=== PATIENT | female | born 1990 | race Caucasian/White ===

== ENCOUNTER 2016-10-22 21:37 | Emergency (ER) | payer OTHER ==
[2016-10-22 21:41] VITALS: BP 108/53
[2016-10-22] MEDS ORDERED: oxyCODONE/Acetamin 5/325 MG* TAB PO ONE (22:02)
--- NOTE | 2016-10-22 22:29 | ED ---
Upper Extremity Pain - HPI Summary HPI Summary: Patient arrives to ED and states she tripped over something and landed on a flexed wrist and now having 10/10 pain on radial aspect of L wrist. Denies numbness or tingling in the L fingers. Patient denies other injuries. Patient denies other injuries, LOC or hitting head. Patient denies elbow pain. Requesting pain medication. Allergy to tramadol but is able to take other similar medications per patient. Pain and swelling occurred immediately following incident. - History of Current Complaint Chief Complaint: EDExtremityUpper Stated Complaint: LT WRIST PAIN Time Seen by Provider: 10/22/16 21:46 Hx Obtained From: Patient Hx Last Menstrual Period: <4weeks. Not sexually active Mechanism Of Injury: Direct Blow, Twisted Onset/Duration: Started Hours Ago Timing: Constant Severity Initially: Severe Severity Currently: Severe Pain Location: Wrist - left Character: Aching, Throbbing Aggravating Factor(s): Movement, Lifting, Flexion, Internal/External Rotation, Abduction, Adduction Alleviating Factor(s): Nothing Associated Signs & Symptoms: Positive: Swelling - over radial head Related History: Dominant Hand Right - Risk Factors Non-Orthopedic Risk Factor: Negative DVT Risk Factors: Negative Septic Arthritis Risk Factor: Negative - Allergies/Home Medications Allergies/Adverse Reactions: Allergies Allergy/AdvReac Type Severity Reaction Status Date / Time Tramadol AdvReac UPSET GI Verified 10/22/16 21:42 PMH/Surg Hx/FS Hx/Imm Hx Previously Healthy: Yes Endocrine/Hematology History: Reports: Hx Diabetes - TYPE 1-INSULIN PUMP Denies: Hx Thyroid Disease Cardiovascular History: Denies: Hx Hypercholesterolemia, Hx Hypertension, Hx Pacemaker/ICD, Hx Peripheral Vascular Disease Respiratory History: Denies: Hx Asthma, Hx Chronic Obstructive Pulmonary Disease (COPD) GI History: Denies: Hx Gastroesophageal Reflux Disease, Other GI Disorders History: Reports: Other Problems/Disorders - HX OF NONE NOW Musculoskeletal History: Reports: Hx Tendonitis - RIGHT WRIST Denies: Hx Arthritis, Hx Osteoporosis Sensory History: Reports: Hx Contacts or Glasses - GLASSES Denies: Hx Cataracts, Hx Glaucoma, Hx Hearing Aid Opthamlomology History: Reports: Hx Contacts or Glasses - GLASSES Denies: Hx Cataracts, Hx Glaucoma Neurological History: Denies: Hx Headaches, Hx Seizures, Hx Transient Ischemic Attacks (TIA), Other Neuro Impairments/Disorders Psychiatric History: Reports: Hx Panic Disorder - A LITTLE Denies: Hx Anxiety, Hx Depression - Surgical History Surgery Procedure, Year, and Place: 2010 RIGHT WRIST TRIANGULAR FIBROCARTILAGE TEAR REPAIR, [facility]. 2013 RT WRIST SURGERY Hx Anesthesia Reactions: No Infectious Disease History: Yes Infectious Disease History: Denies: Traveled Outside the [place] in Last 30 Days - Family History Known Family History: Positive: None - Social History Occupation: Unemployed Lives: With Family Alcohol Use: None Hx Substance Use: No Substance Use Type: Reports: None Hx Tobacco Use: Yes Smoking Status (MU): Heavy Every Day Tobacco Smoker Do You Chew or Dip Tobacco: Yes Amount Used/How Often: 1 PPD X 10 YEARS Have You Chewed or Dipped Tobacco in the LAST YEAR: Yes Have You Smoked in the Last Year: Yes Review of Systems Constitutional: Negative Eyes: Negative Cardiovascular: Negative Respiratory: Negative Positive: see HPI Positive: Arthralgia - pain over l wrist over ulnar and radial side, Myalgia Skin: Negative Positive: Other - swelling of L wrist Neurological: Negative Psychological: Normal All Other Systems Reviewed And Are Negative: Yes Physical Exam Triage Information Reviewed: Yes Vital Signs On Initial Exam: Initial Vitals Temp Pulse Resp BP Pulse Ox 97.8 F 115 16 108/53 100 10/22/16 21:38 10/22/16 21:38 10/22/16 21:38 10/22/16 21:38 10/22/16 21:38 Vital Signs Reviewed: Yes Appearance: Positive: Well-Appearing, No Pain Distress, Well-Nourished Skin: Positive: Warm, Skin Color Reflects Adequate Perfusion, Other - swelling over L radial head Eyes: Positive: Normal, EOMI, RUY Neck: Positive: Supple, Nontender Respiratory/Lung Sounds: Positive: Clear to Auscultation, Breath Sounds Present Cardiovascular: Positive: Normal Musculoskeletal: Positive: Other - Thorough physical exam was performed, focusing on special wrist tests. Limited ROM. Pain with palpation over ulnar aspect of wrist at ulnar head. Pain with palpation over radial aspect over radial head. Swelling over radial aspect of wrist. No ecchymosis identified. No pain, swelling or tenderness over anatomical snuffbox. No crepitus noted. No pain on palpation over medial or lateral elbow or forearm tenderness. Due to patient pain around injury, physical exam was limited. Pulses intact bilaterally. No temperature change, color change or pallor noted bilaterally. Sensory intact of radial, medial and ulnar nerve. Capillary refill < 2 sec. Neurological: Positive: Sensory/Motor Intact, Alert, Oriented to Person Place, Time, Speech Normal, Other - patient is very tearful on examination Psychiatric: Positive: Anxious AVPU Assessment: Alert Diagnostics - Vital Signs Vital Signs Temp Pulse Resp BP Pulse Ox 10/22/16 21:38 97.8 F 115 16 108/53 100 - Laboratory Lab Statement: Any lab studies that have been ordered have been reviewed, and results considered in the medical decision making process. Re-Evaluation - Re-Evaluation First Eval Change: Improved - patient improved after dose of oxycodone Course/Dx - Course Course Of Treatment: Based on Critz Wrist Rules, patient sent to imaging. Xray shows avulsion fracture of right distal radius. Soft tissue swelling noted over the dorsal aspect of the wrist. Volar wrist splint applied to allow for immobilization for this period of time. Patient given orthopedic follow up in 5 -[address] Rodriguez. She is a previous patient of Dr. Rodriguez. Encouraged Ibuprofen 600mg three times daily with meals for pain. Patient requesting pain medication. Provider willing to prescribe 2 days of norco with side effects explained. Return precautions given. Educated patient regarding wrist injuries , healing time and the possibility of further evaluation and imaging as orthopedist sees fit. - Diagnoses Differential Diagnosis/HQI/PQRI: Positive: Fracture (Closed), Strain, Sprain Provider Diagnoses: Avulsion of right wrist Discharge - Discharge Plan Condition: Stable Disposition: HOME Prescriptions: HYDROcodone/ACETAMIN 5-325 MG* [[place] 5-325 TAB*] 1 tab PO Q4H PRN #12 tab MDD 6 PRN Reason: Pain Referrals: Sancho Jewell JR, PA [Primary Care Provider] - Rosi Rodriguez MD [Medical Doctor] - Additional Instructions: Splinted for temporary immobilization Ibuprofen 600mg three times daily with meals for pain. If your pain is not well controlled with ibuprofen, you may take Hydrocodone. Follow up with orthopedic physician, Dr. Rodriguez in 5-7 days. If numbness, tingling or decreased sensation develop, you notice color changes in your fingers or pain is worsening, come back to ED immediately for re- evaluation. Protect the area. For your comfort level, do not bear weight, pull or push until you can injury is somewhat healed. Rest the involved area. Ice. Not directly on the skin. Cover with a towel. Apply ice no more than 30 minutes at a time Elevate: Try to elevate the injured area above the heart whenever possible.
--- NOTE | 2016-10-22 22:44 | RAD ---
INDICATION: Wrist pain after a fall COMPARISON: None. TECHNIQUE: 3 views left wrist. REPORT: On the lateral aspect of the distal left radius is a thin bony fragment. There is also density at the adjacent lateral cortex of the radius. The remaining visualized bones are properly aligned and well corticated. The joint spaces are normal. IMPRESSION: Imaging findings are consistent with avulsion fracture involving the distal lateral aspect of the left radius, potentially at the insertion of the brachioradialis muscle. If the patient's symptoms persist, follow-up imaging is recommended.
== END 2016-10-22 23:53 | disposition home or self-care (01) ==
LOC: ED 21:37
DX: S52.502A Unspecified fracture of the lower end of left radius, initial encounter for closed fracture (principal); M25.532 Pain in left wrist; X58.XXXA Exposure to other specified factors, initial encounter; Y93.9 Activity, unspecified; Y92.9 Unspecified place or not applicable
CPT/HCPCS: 99282; A9270-GY

== ENCOUNTER 2017-09-04 11:18 | Emergency (ER) | payer OTHER ==
[2017-09-04 13:21] VITALS: BP 107/64
--- NOTE | 2017-09-04 14:54 | ED ---
Memo Naik Angela, scribed for Gurmeet Valdez MD on 09/04/17 at 1151 . Substance Abuse/Use - HPI Summary HPI Summary: This pt is a 26 y/o, accompanied by her mother, presenting to [facility] via EMS for a heroin overdose approximately around 11:00 today. Pt reports she snorted heroin about 1 hour [employer]. When asked if she overdosed on purpose, she states "I didn't do it intentionally" and "it was a bad batch." Mother notes she was dropping the pt off at [facility] and pt stated she "needed to do something." Pt reports she asked to be taken to [facility] prior to overdose. Mother noticed what she wanted to do and tried to take away the heroin from her but didn't succeed. EMS reports pt was found unresponsive and administered 0.5 mg of Narcan. FSBG 83. PMHx includes type 1 diabetes. - History Of Current Complaint Chief Complaint: EDOverdose Stated Complaint: OVERDOSE Time Seen by Provider: 09/04/17 11:44 Hx Obtained From: Patient Hx Last Menstrual Period: <4weeks. Not sexually active Onset/Duration of Drug/ETOH Abuse: Hours - 1 hour [employer] Ingestion History: Type/Name Of Drug - Heroin, Approximate Time Of Ingestion - approx 11:00 AM Overdose Characteristics: Inhalation Character: Anxious Aggravating Factor(s): Nothing Alleviating Factor(s): Other - Narcan 0.5 mg Associated Signs And Symptoms: Negative - Allergies/Home Medications Allergies/Adverse Reactions: Allergies Allergy/AdvReac Type Severity Reaction Status Date / Time Tramadol AdvReac UPSET GI Verified 10/22/16 21:42 PMH/Surg Hx/FS Hx/Imm Hx Endocrine/Hematology History: Reports: Hx Diabetes - TYPE 1-INSULIN PUMP Denies: Hx Thyroid Disease Cardiovascular History: Denies: Hx Hypercholesterolemia, Hx Hypertension, Hx Pacemaker/ICD, Hx Peripheral Vascular Disease Respiratory History: Denies: Hx Asthma, Hx Chronic Obstructive Pulmonary Disease (COPD) GI History: Denies: Hx Gastroesophageal Reflux Disease, Other GI Disorders History: Reports: Other Problems/Disorders - HX OF NONE NOW Musculoskeletal History: Reports: Hx Tendonitis - RIGHT WRIST Denies: Hx Arthritis, Hx Osteoporosis Sensory History: Reports: Hx Contacts or Glasses - GLASSES Denies: Hx Cataracts, Hx Glaucoma, Hx Hearing Aid Opthamlomology History: Reports: Hx Contacts or Glasses - GLASSES Denies: Hx Cataracts, Hx Glaucoma Neurological History: Denies: Hx Headaches, Hx Seizures, Hx Transient Ischemic Attacks (TIA), Other Neuro Impairments/Disorders Psychiatric History: Reports: Hx Panic Disorder - A LITTLE Denies: Hx Anxiety, Hx Depression - Surgical History Surgery Procedure, Year, and Place: 2010 RIGHT WRIST TRIANGULAR FIBROCARTILAGE TEAR REPAIR, [facility]. 2012 RT WRIST SURGERY Hx Anesthesia Reactions: No - Immunization History Immunizations Up to Date: Yes Infectious Disease History: No Infectious Disease History: Denies: Traveled Outside the [place] in Last 30 Days - Family History Known Family History: Positive: Diabetes, Other - [place] - Social History Alcohol Use: None Hx Substance Use: No Substance Use Type: Reports: Marijuana Substance Use Comment - Amount & Last Used: one bowl daily Hx Tobacco Use: Yes Smoking Status (MU): Heavy Every Day Tobacco Smoker Amount Used/How Often: 1 PPD X 10 YEARS Have You Smoked in the Last Year: Yes Review of Systems Negative: Fever, Chills Cardiovascular: Other Neurological: Other - unresponsive, now resolved after EMS treatment All Other Systems Reviewed And Are Negative: Yes Physical Exam - Summary Physical Exam Summary: Appearance: The patient is well-nourished and is a little agitated. Skin: The skin is warm and dry and skin color reflects adequate perfusion. HEENT: The head is normocephalic and atraumatic. The pupils are equal and reactive. The conjunctivae are clear and without drainage. Nares are patent and without drainage. Mouth reveals moist mucous membranes and the throat is without erythema and exudate. The external ears are intact. The ear canals are patent and without drainage. The tympanic membranes are intact. Neck: the neck is supple with full range of motion and non-tender. There are no carotid bruits. There is no neck vein distension. Respiratory: Chest is non-tender. Lungs are clear to auscultation and breath sounds are symmetrical and equal. Cardiovascular: Pt is tachycardic. There is no murmur or rub auscultated. There is no peripheral edema and pulses are symmetrical and equal. Abdomen: The abdomen is soft and non-tender. There are normal bowel sounds heard in all four quadrants and there is no organomegaly palpated. Musculoskeletal: There is no back tenderness noted. Extremities are non-tender with full range of motion. There is good capillary refill. There is no peripheral edema or calf tenderness elicited. Neurological: Patient is alert and oriented to person, place and time. The patient has symmetrical motor strength in all four extremities. Cranial nerves are grossly intact. Deep tendon reflexes are symmetrical and equal in all four extremities. Psychiatric: The patient has an appropriate affect and does not exhibit any anxiety or depression. Triage Information Reviewed: Yes Vital Signs On Initial Exam: Initial Vitals Temp Pulse Resp BP Pulse Ox 98.1 F 113 19 127/91 96 09/04/17 11:30 09/04/17 11:30 09/04/17 11:30 09/04/17 11:30 09/04/17 11:30 Vital Signs Reviewed: Yes - [place] Coma Scale Coma Scale Total: 15 Diagnostics - Vital Signs Vital Signs Temp Pulse Resp BP Pulse Ox 09/04/17 11:30 98.1 F 113 19 127/91 96 - Laboratory Lab Results: Lab Results 09/04/17 Range/Units 12:19 POC Glucose (mg/dL) 78 (70-100) mg/dL Lab Statement: Any lab studies that have been ordered have been reviewed, and results considered in the medical decision making process. 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 She was scheduled to go to [facility] today and her family took her. When she got there she says she found a bag with a litlle herion in her purse and decided to snort it. She became unresponsive and Narcan was administered. She was agitated here which she and her family say is mormal for her. She did drop her SPO2 into the high 80's if not stimulated and was therefore watched on O2 for a couple hours. Her FSG was fine. Hopefully, [facility] will agree to accept her again. - Diagnoses Provider Diagnoses: Opiate use, Accidental overdose of heroin Discharge - Discharge Plan Condition: Stable Disposition: HOME Patient Education Materials: Narcotic Abuse (ED) Referrals: Sancho Jewell JR, PA [Primary Care Provider] - Additional Instructions: Please follow up with your primary care provider. RETURN TO THE ED FOR ANY WORSENING SYMPTOMS. The documentation as recorded by the [facility] grant Angela accurately reflects the service I personally performed and the decisions made by me, Gurmeet Valdez MD.
== END 2017-09-04 14:19 | disposition home or self-care (01) ==
LOC: ED 11:18
DX: T40.1X1A Poisoning by heroin, accidental (unintentional), initial encounter (principal); F11.90 Opioid use, unspecified, uncomplicated; Y92.9 Unspecified place or not applicable; E10.9 Type 1 diabetes mellitus without complications; F17.210 Nicotine dependence, cigarettes, uncomplicated
CPT/HCPCS: 93005; 99283

== ENCOUNTER 2020-04-24 11:46 | Inpatient (IN) ==
[2020-04-24] MEDS ORDERED: Dextrose 50% Syringe 50 ml 25 GM/50 ML SYRINGE IV PUSH PRN (14:56)
[2020-04-24 15:05] LABS: ABS Basophils 0.1 10^3/ul (0-0.2); ABS Lymphocytes 2.4 10^3/ul (1.0-4.8); ABS Monocytes 1.1 10^3/ul (0-0.8); ABS Neutrophils 9.2 10^3/ul (1.5-7.7); Eosinophil % 0.1 %; Hematocrit 30 % (35-47); Lymphocyte % 18.5 %; Mean Corpuscular HGB Conc 33 g/dL (31-36); Mean Corpuscular Hemoglobin 29 pg (27-31); Mean Corpuscular Volume 87 fL (80-97); Mean Platelet Volume 8.5 fL (7.4-10.4); Platelet Count 259 10^3/uL (150-450); Red Blood Count 3.48 10^6 /uL (3.70-4.87); Red Cell Distribution Width 16 % (10-15); White Blood Count 12.7 10^3/uL (3.5-10.8)
[2020-04-24] MEDS ORDERED: NS 0.9% 250 ml 250 ML ONE (15:11)
[2020-04-24 15:13] LABS: Albumin 3.1 g/dL (3.2-5.2); Albumin/Globulin Ratio 0.9 (1-3); BUN/Creatinine Ratio 29.1 (8-20); Calcium 8.5 mg/dL (8.6-10.3); EGFR African American 158.1 (>60); EGFR Non-African American 130.7 (>60); Globulin 3.5 g/dL (2-4); Magnesium 1.7 mg/dL (1.9-2.7); Potassium 4.6 mmol/L (3.5-5.0); Total Bilirubin 0.5 mg/dL (0.2-1.0); Total Protein 6.6 g/dL (6.4-8.9)
[2020-04-24] MEDS ORDERED: NS 0.9% 1000 ml BAG 1,000 ML IV ONE (15:20)
[2020-04-24] MEDS ORDERED: Dexmedetomidine 1,000 MCG in NS 0.9% 250 ml 240 ML IV SCH (16:00)
[2020-04-24] MEDS ORDERED: Vancomycin 1,000 MG in NS 0.9% 250 ml 250 ML IV ONE (16:49)
[2020-04-24] MEDS ORDERED: Piperacillin/Tazobac ADVAN 3.375 GM in NS 0.9% 100 ml BAG 100 ML IVPB ONE (16:52)
[2020-04-24] MEDS ORDERED: Vancomycin per Pharmacy 1 EA NOTE FOLLOW UP PRN (16:55)
[2020-04-24] MEDS ORDERED: Zosyn per Pharmacy NOTE FOLLOW UP SCH (17:00)
[2020-04-24] MEDS ORDERED: Magnesium Sulfate 2 gm BAG 2 GM/50 ML BAG IVPB ONE (17:08)
[2020-04-24 17:39] LABS: Activated Partial Thrombo Time 27.7 seconds (26.0-38.0); C Reactive Protein 117.09 mg/L (<8.01); INR 1.16 (0.82-1.09)
[2020-04-24 17:50] LABS: Troponin I 0.01 ng/mL (<0.03)
[2020-04-24 17:52] LABS: CKMB ng/mL 4.3 ng/mL (0.6-6.3)
[2020-04-24] MEDS: Lactated Ringers 1000 ml BAG 1,000 ML IV SCH (19:09)
[2020-04-24] MEDS: Heparin 5000 UNITS/ML 1 mL VIAL SUBCUT SCH (20:14)
[2020-04-24] MEDS: ZOSYN 3.375 GM Q8H per EXTENDED INFUSION IV SCH (21:11)
[2020-04-25] MEDS: Vancomycin 750 MG in NS 0.9% 250 ml 250 ML IVPB SCH ×5 (00:32→23:34)
[2020-04-25] MEDS: Lactated Ringers 1000 ml BAG 1,000 ML IV SCH ×2 (02:37→21:22)
[2020-04-25 04:50] LABS: Albumin 2.8 g/dL (3.2-5.2); Albumin/Globulin Ratio 0.9 (1-3); BUN/Creatinine Ratio 21.8 (8-20); Calcium 8.2 mg/dL (8.6-10.3); EGFR African American 158.1 (>60); EGFR Non-African American 130.7 (>60); Magnesium 1.8 mg/dL (1.9-2.7); Phosphorus 2.8 mg/dL (2.5-5.0); Total Bilirubin 0.4 mg/dL (0.2-1.0); Total Protein 5.8 g/dL (6.4-8.9)
[2020-04-25 05:12] LABS: ABS Eosinophils 0.1 10^3/ul (0-0.6); ABS Lymphocytes 2.4 10^3/ul (1.0-4.8); ABS Monocytes 0.8 10^3/ul (0-0.8); ABS Neutrophils 5.3 10^3/ul (1.5-7.7); Hematocrit 28 % (35-47); Hemoglobin 9.2 g/dL (12.0-16.0); Lymphocyte % 27.4 %; Mean Corpuscular HGB Conc 33 g/dL (31-36); Mean Corpuscular Hemoglobin 29 pg (27-31); Mean Corpuscular Volume 86 fL (80-97); Mean Platelet Volume 8.3 fL (7.4-10.4); Platelet Count 265 10^3/uL (150-450); Red Blood Count 3.21 10^6 /uL (3.70-4.87); Red Cell Distribution Width 16 % (10-15); White Blood Count 8.6 10^3/uL (3.5-10.8)
[2020-04-25] MEDS: ZOSYN 3.375 GM Q8H per EXTENDED INFUSION IV SCH ×3 (05:51→21:22)
[2020-04-25] MEDS: Heparin 5000 UNITS/ML 1 mL VIAL SUBCUT SCH ×2 (08:09→21:28)
[2020-04-25] MEDS ORDERED: Magnesium Sulfate 2 gm BAG 2 GM/50 ML BAG IVPB ONE (11:43)
[2020-04-25] MEDS: Insulin GLARGINE 100 un/ml 10 ml VIAL SUBCUT SCH (12:32)
[2020-04-25] MEDS: Buprenorp/Nalox 4-1 MG FILM SL FILM SCH ×2 (14:24→21:23)
[2020-04-25] MEDS ORDERED: Vancomycin Trough Check NOTE FOLLOW UP ONE (17:30)
[2020-04-26] MEDS: ZOSYN 3.375 GM Q8H per EXTENDED INFUSION IV SCH ×3 (06:00→22:12)
[2020-04-26] MEDS: Vancomycin 750 MG in NS 0.9% 250 ml 250 ML IVPB SCH (06:00)
[2020-04-26 06:13] LABS: ABS Eosinophils 0.1 10^3/ul (0-0.6); ABS Lymphocytes 2.1 10^3/ul (1.0-4.8); ABS Monocytes 0.6 10^3/ul (0-0.8); ABS Neutrophils 4.5 10^3/ul (1.5-7.7); Hematocrit 28 % (35-47); Hemoglobin 9.4 g/dL (12.0-16.0); Lymphocyte % 28.1 %; Mean Corpuscular HGB Conc 34 g/dL (31-36); Mean Corpuscular Hemoglobin 29 pg (27-31); Mean Corpuscular Volume 86 fL (80-97); Mean Platelet Volume 7.7 fL (7.4-10.4); Platelet Count 310 10^3/uL (150-450); Red Cell Distribution Width 15 % (10-15); White Blood Count 7.3 10^3/uL (3.5-10.8)
[2020-04-26 06:59] LABS: Albumin 2.5 g/dL (3.2-5.2); Albumin/Globulin Ratio 0.8 (1-3); BUN/Creatinine Ratio 23.8 (8-20); Calcium 8.2 mg/dL (8.6-10.3); EGFR African American 215.8 (>60); EGFR Non-African American 178.4 (>60); Globulin 3.1 g/dL (2-4); Magnesium 1.6 mg/dL (1.9-2.7); Phosphorus 2.8 mg/dL (2.5-5.0); Potassium 4.3 mmol/L (3.5-5.0); Total Bilirubin 0.2 mg/dL (0.2-1.0); Total Protein 5.6 g/dL (6.4-8.9)
[2020-04-26] MEDS ORDERED: Magnesium Sulfate 2 gm BAG 2 GM/50 ML BAG IVPB ONE (07:04)
[2020-04-26] MEDS ORDERED: Magnesium Sulf 4 GM/100 ML IV 4,000 MG/100 ML BAG IVPB ONE (08:54)
[2020-04-26] MEDS: Heparin 5000 UNITS/ML 1 mL VIAL SUBCUT SCH ×2 (10:01→20:27)
[2020-04-26] MEDS: Insulin GLARGINE 100 un/ml 10 ml VIAL SUBCUT SCH (10:43)
[2020-04-26] MEDS: Buprenorp/Nalox 4-1 MG FILM SL FILM SCH ×2 (10:52→20:14)
[2020-04-26] MEDS: Vancomycin 1,250 MG in NS 0.9% 250 ml 250 ML IVPB SCH ×2 (13:23→20:27)
[2020-04-26] MEDS ORDERED: Midazolam 5 mg/5 ml VIAL 1 mg/ml 5 ml VIAL (5 mg) ONE (14:40)
[2020-04-26] MEDS ORDERED: Lidocaine 2% PF 5 ML VIAL ONE (14:40)
[2020-04-26] MEDS ORDERED: Propofol 10 MG/ML 20 ML BTL ONE (14:40)
[2020-04-26] MEDS ORDERED: Insulin GLARGINE 100 un/ml 10 ml VIAL SUBCUT SCH (21:00)
[2020-04-26] MEDS: Lactated Ringers 1000 ml BAG 1,000 ML IV SCH (22:23)
[2020-04-27] MEDS: Vancomycin 1,250 MG in NS 0.9% 250 ml 250 ML IVPB SCH ×2 (04:17→12:20)
[2020-04-27 06:05] LABS: ABS Basophils 0.1 10^3/ul (0-0.2); ABS Lymphocytes 1.8 10^3/ul (1.0-4.8); ABS Monocytes 0.4 10^3/ul (0-0.8); ABS Neutrophils 3.6 10^3/ul (1.5-7.7); Eosinophil % 0.8 %; Hematocrit 27 % (35-47); Hemoglobin 9.3 g/dL (12.0-16.0); Lymphocyte % 30.7 %; Mean Corpuscular HGB Conc 34 g/dL (31-36); Mean Corpuscular Hemoglobin 29 pg (27-31); Mean Corpuscular Volume 85 fL (80-97); Mean Platelet Volume 7.7 fL (7.4-10.4); Platelet Count 338 10^3/uL (150-450); Red Blood Count 3.21 10^6 /uL (3.70-4.87); Red Cell Distribution Width 15 % (10-15); White Blood Count 5.9 10^3/uL (3.5-10.8)
[2020-04-27] MEDS: ZOSYN 3.375 GM Q8H per EXTENDED INFUSION IV SCH (06:07)
[2020-04-27 06:22] LABS: Albumin 2.5 g/dL (3.2-5.2); Albumin/Globulin Ratio 0.8 (1-3); Calcium 8.3 mg/dL (8.6-10.3); EGFR African American 189.6 (>60); EGFR Non-African American 156.7 (>60); Globulin 3.2 g/dL (2-4); Magnesium 1.6 mg/dL (1.9-2.7); Phosphorus 3.1 mg/dL (2.5-5.0); Potassium 4.3 mmol/L (3.5-5.0); Total Bilirubin 0.2 mg/dL (0.2-1.0); Total Protein 5.7 g/dL (6.4-8.9)
[2020-04-27] MEDS: Heparin 5000 UNITS/ML 1 mL VIAL SUBCUT SCH ×2 (08:08→20:50)
[2020-04-27] MEDS: Nicotine PATCH 7 MG/24 HR PATCH TRANSDERM SCH (08:09)
[2020-04-27] MEDS: Buprenorp/Nalox 8-2 MG FILM SL FILM SCH (08:21)
[2020-04-27] MEDS ORDERED: Insulin GLARGINE 100 un/ml 10 ml VIAL SUBCUT SCH (09:00)
[2020-04-27] MEDS ORDERED: Magnesium Sulf 4 GM/100 ML IV 4,000 MG/100 ML BAG IVPB ONE (09:00)
[2020-04-27] MEDS ORDERED: Vancomycin Trough Check NOTE FOLLOW UP ONE (11:30)
[2020-04-27] MEDS: Vancomycin 1,250 MG in NS 0.9% 250 ml 250 ML IV SCH (16:15)
[2020-04-27] MEDS: cefTRIAXone 2 GM ADDV.VIAL 2 GM in NS 0.9% 100 ml BAG 100 ML IV SCH (17:56)
[2020-04-27] MEDS: Buprenorp/Nalox 4-1 MG FILM SL FILM SCH (20:50)
[2020-04-27] MEDS: Insulin GLARGINE 100 un/ml 10 ml VIAL SUBCUT SCH (20:50)
[2020-04-28] MEDS: Vancomycin 1,250 MG in NS 0.9% 250 ml 250 ML IV SCH ×2 (03:43→18:20)
[2020-04-28 06:46] LABS: ABS Basophils 0.1 10^3/ul (0-0.2); ABS Lymphocytes 1.9 10^3/ul (1.0-4.8); ABS Monocytes 0.5 10^3/ul (0-0.8); ABS Neutrophils 4.9 10^3/ul (1.5-7.7); Eosinophil % 0.7 %; Hematocrit 31 % (35-47); Hemoglobin 10.4 g/dL (12.0-16.0); Lymphocyte % 25.6 %; Mean Corpuscular HGB Conc 34 g/dL (31-36); Mean Corpuscular Hemoglobin 29 pg (27-31); Mean Corpuscular Volume 85 fL (80-97); Mean Platelet Volume 7.4 fL (7.4-10.4); Platelet Count 432 10^3/uL (150-450); Red Blood Count 3.63 10^6 /uL (3.70-4.87); Red Cell Distribution Width 15 % (10-15); White Blood Count 7.4 10^3/uL (3.5-10.8)
[2020-04-28 07:15] LABS: Albumin 2.8 g/dL (3.2-5.2); Albumin/Globulin Ratio 0.8 (1-3); Calcium 8.7 mg/dL (8.6-10.3); EGFR African American 176.5 (>60); EGFR Non-African American 145.9 (>60); Globulin 3.5 g/dL (2-4); Magnesium 1.5 mg/dL (1.9-2.7); Phosphorus 4.2 mg/dL (2.5-5.0); Potassium 3.9 mmol/L (3.5-5.0); Total Bilirubin 0.2 mg/dL (0.2-1.0); Total Protein 6.3 g/dL (6.4-8.9)
[2020-04-28] MEDS: Heparin 5000 UNITS/ML 1 mL VIAL SUBCUT SCH ×2 (08:33→22:29)
[2020-04-28] MEDS: Insulin GLARGINE 100 un/ml 10 ml VIAL SUBCUT SCH ×2 (08:33→22:28)
[2020-04-28] MEDS: Nicotine PATCH 7 MG/24 HR PATCH TRANSDERM SCH (08:33)
[2020-04-28] MEDS: Buprenorp/Nalox 8-2 MG FILM SL FILM SCH (08:33)
[2020-04-28] MEDS: Magnesium Sulfate 2 gm BAG 2 GM/50 ML BAG IVPB SCH ×2 (09:35→14:29)
[2020-04-28] MEDS ORDERED: Buffered Lidocaine 1% SYRIN 1 ml INTRADERM ONE ×2 (13:44→13:48)
[2020-04-28] MEDS ORDERED: Vancomycin Trough Check NOTE FOLLOW UP ONE (16:00)
[2020-04-28] MEDS: Vancomycin 750 MG in NS 0.9% 250 ml 250 ML IVPB SCH (18:20)
[2020-04-28] MEDS: Buprenorp/Nalox 4-1 MG FILM SL FILM SCH (20:07)
[2020-04-28] MEDS: cefTRIAXone 2 GM ADDV.VIAL 2 GM in NS 0.9% 100 ml BAG 100 ML IV SCH (20:08)
[2020-04-29] MEDS: Insulin GLARGINE 100 un/ml 10 ml VIAL SUBCUT SCH ×2 (00:29→20:55)
[2020-04-29] MEDS: Vancomycin 750 MG in NS 0.9% 250 ml 250 ML IVPB SCH ×3 (02:26→18:55)
[2020-04-29 06:11] LABS: ABS Lymphocytes 1.8 10^3/ul (1.0-4.8); ABS Monocytes 0.3 10^3/ul (0-0.8); ABS Neutrophils 2.3 10^3/ul (1.5-7.7); Eosinophil % 1.1 %; Hematocrit 30 % (35-47); Hemoglobin 10.4 g/dL (12.0-16.0); Lymphocyte % 39.5 %; Mean Corpuscular HGB Conc 34 g/dL (31-36); Mean Corpuscular Hemoglobin 29 pg (27-31); Mean Corpuscular Volume 85 fL (80-97); Mean Platelet Volume 7.2 fL (7.4-10.4); Nucleated Red Blood Cells % 0.1; Platelet Count 461 10^3/uL (150-450); Red Blood Count 3.56 10^6 /uL (3.70-4.87); Red Cell Distribution Width 15 % (10-15); White Blood Count 4.5 10^3/uL (3.5-10.8)
[2020-04-29 06:43] LABS: Albumin 2.9 g/dL (3.2-5.2); Albumin/Globulin Ratio 0.8 (1-3); BUN/Creatinine Ratio 17.8 (8-20); Calcium 8.9 mg/dL (8.6-10.3); EGFR African American 199.3 (>60); EGFR Non-African American 164.7 (>60); Globulin 3.7 g/dL (2-4); Magnesium 1.5 mg/dL (1.9-2.7); Phosphorus 3.9 mg/dL (2.5-5.0); Potassium 4.2 mmol/L (3.5-5.0); Total Bilirubin 0.2 mg/dL (0.2-1.0); Total Protein 6.6 g/dL (6.4-8.9)
[2020-04-29] MEDS ORDERED: Insulin GLARGINE 100 un/ml 10 ml VIAL SUBCUT SCH ×2 (09:00→23:00)
[2020-04-29] MEDS: Buprenorp/Nalox 8-2 MG FILM SL FILM SCH (09:15)
[2020-04-29] MEDS: Nicotine PATCH 7 MG/24 HR PATCH TRANSDERM SCH (09:15)
[2020-04-29] MEDS: Heparin 5000 UNITS/ML 1 mL VIAL SUBCUT SCH ×2 (09:15→20:55)
[2020-04-29] MEDS: Magnesium Sulfate 2 gm BAG 2 GM/50 ML BAG IVPB SCH ×2 (12:34→14:01)
[2020-04-29] MEDS: cefTRIAXone 2 GM ADDV.VIAL 2 GM in NS 0.9% 100 ml BAG 100 ML IV SCH (18:02)
[2020-04-29 19:37] LABS: Hepatitis C Antibody Reactive (Negative)
[2020-04-29] MEDS: Buprenorp/Nalox 4-1 MG FILM SL FILM SCH (20:34)
[2020-04-30] MEDS: Vancomycin 750 MG in NS 0.9% 250 ml 250 ML IVPB SCH ×2 (02:25→11:48)
[2020-04-30] MEDS: Nicotine PATCH 7 MG/24 HR PATCH TRANSDERM SCH (08:18)
[2020-04-30] MEDS: Buprenorp/Nalox 8-2 MG FILM SL FILM SCH (08:18)
[2020-04-30] MEDS: Insulin GLARGINE 100 un/ml 10 ml VIAL SUBCUT SCH ×2 (08:18→20:50)
[2020-04-30] MEDS: Heparin 5000 UNITS/ML 1 mL VIAL SUBCUT SCH ×2 (08:18→20:48)
[2020-04-30 09:27] LABS: BUN/Creatinine Ratio 15.2 (8-20); Calcium 8.6 mg/dL (8.6-10.3); EGFR African American 194.3 (>60); EGFR Non-African American 160.6 (>60); Magnesium 1.4 mg/dL (1.9-2.7)
[2020-04-30] MEDS ORDERED: Vancomycin Trough Check NOTE FOLLOW UP ONE (09:30)
[2020-04-30 09:34] LABS: EGFR African American 194.3 (>60); EGFR Non-African American 160.6 (>60)
[2020-04-30] MEDS ORDERED: Magnesium Sulfate IV 3 GM in NS 0.9% 100 ml BAG 100 ML IVPB ONE (10:00)
[2020-04-30 10:23] LABS: Vancomycin Trough 8.2 mcg/mL
[2020-04-30] MEDS: Vancomycin 1,000 MG in NS 0.9% 250 ml 250 ML IV SCH ×2 (11:55→20:34)
[2020-04-30] MEDS ORDERED: Dextrose 50% Syringe 50 ml 25 GM/50 ML SYRINGE IV PUSH PRN (16:42)
[2020-04-30] MEDS: cefTRIAXone 2 GM ADDV.VIAL 2 GM in NS 0.9% 100 ml BAG 100 ML IV SCH (16:52)
[2020-04-30] MEDS: Buprenorp/Nalox 4-1 MG FILM SL FILM PRN (16:56)
[2020-04-30] MEDS: Buprenorp/Nalox 4-1 MG FILM SL FILM SCH (20:34)
[2020-05-01] MEDS: Vancomycin 1,000 MG in NS 0.9% 250 ml 250 ML IV SCH ×3 (03:49→20:41)
[2020-05-01 06:50] LABS: BUN/Creatinine Ratio 20.5 (8-20); Calcium 8.9 mg/dL (8.6-10.3); EGFR African American 204.6 (>60); EGFR Non-African American 169.1 (>60); Magnesium 1.4 mg/dL (1.9-2.7); Potassium 4.3 mmol/L (3.5-5.0)
[2020-05-01] MEDS ORDERED: Magnesium Sulf 4 GM/100 ML IV 4,000 MG/100 ML BAG IVPB ONE (09:15)
[2020-05-01] MEDS: Nicotine PATCH 7 MG/24 HR PATCH TRANSDERM SCH (09:18)
[2020-05-01] MEDS: Heparin 5000 UNITS/ML 1 mL VIAL SUBCUT SCH ×2 (09:18→20:39)
[2020-05-01] MEDS: Insulin GLARGINE 100 un/ml 10 ml VIAL SUBCUT SCH (09:19)
[2020-05-01] MEDS: Buprenorp/Nalox 8-2 MG FILM SL FILM SCH (09:25)
[2020-05-01] MEDS: cefTRIAXone 2 GM ADDV.VIAL 2 GM in NS 0.9% 100 ml BAG 100 ML IV SCH (17:34)
[2020-05-01] MEDS: Buprenorp/Nalox 4-1 MG FILM SL FILM PRN (17:40)
[2020-05-01] MEDS: Buprenorp/Nalox 4-1 MG FILM SL FILM SCH (20:47)
[2020-05-01] MEDS ORDERED: Insulin GLARGINE 100 un/ml 10 ml VIAL SUBCUT SCH (21:00)
[2020-05-02] MEDS: Vancomycin 1,000 MG in NS 0.9% 250 ml 250 ML IV SCH ×2 (03:26→13:52)
[2020-05-02 05:54] LABS: ABS Basophils 0.1 10^3/ul (0-0.2); ABS Lymphocytes 1.6 10^3/ul (1.0-4.8); ABS Monocytes 0.3 10^3/ul (0-0.8); ABS Neutrophils 2.3 10^3/ul (1.5-7.7); Eosinophil % 1.1 %; Hematocrit 32 % (35-47); Hemoglobin 10.8 g/dL (12.0-16.0); Lymphocyte % 37.8 %; Mean Corpuscular HGB Conc 34 g/dL (31-36); Mean Corpuscular Hemoglobin 29 pg (27-31); Mean Corpuscular Volume 87 fL (80-97); Mean Platelet Volume 7.2 fL (7.4-10.4); Nucleated Red Blood Cells % 0.1; Platelet Count 430 10^3/uL (150-450); Red Cell Distribution Width 16 % (10-15); White Blood Count 4.3 10^3/uL (3.5-10.8)
[2020-05-02 06:17] LABS: BUN/Creatinine Ratio 23.3 (8-20); Calcium 8.9 mg/dL (8.6-10.3); EGFR African American 210.1 (>60); EGFR Non-African American 173.6 (>60); Magnesium 1.4 mg/dL (1.9-2.7); Potassium 4.3 mmol/L (3.5-5.0)
[2020-05-02] MEDS: Insulin GLARGINE 100 un/ml 10 ml VIAL SUBCUT SCH (08:54)
[2020-05-02] MEDS: Buprenorp/Nalox 8-2 MG FILM SL FILM SCH (08:55)
[2020-05-02] MEDS: Heparin 5000 UNITS/ML 1 mL VIAL SUBCUT SCH (08:55)
[2020-05-02] MEDS: Nicotine PATCH 7 MG/24 HR PATCH TRANSDERM SCH (08:55)
[2020-05-02 11:18] LABS: C Reactive Protein 7.73 mg/L (<8.01)
[2020-05-02] MEDS ORDERED: Vancomycin Trough Check NOTE FOLLOW UP ONE (11:30)
[2020-05-02] MEDS ORDERED: Magnesium Sulf 4 GM/100 ML IV 4,000 MG/100 ML BAG IVPB ONE (12:00)
[2020-05-02] MEDS ORDERED: Vancomycin 1,250 MG in NS 0.9% 250 ml 250 ML IV SCH (14:00)
[2020-05-02 14:57] VITALS: BP 96/55
[2020-05-02] MEDS ORDERED: Insulin GLARGINE 100 un/ml 10 ml VIAL SUBCUT SCH (21:00)
== END 2020-05-02 15:15 | disposition swing bed (61) | DRG 720 ==
LOC: ICU 14:09 → MEDTELE 04-27 02:33
PROVIDERS: ADMIT Internal Medicine; ATTEND Student in an Organized Health Care Education/Training Program
PROC: O.CATEE (2020-04-26 15:15)

== ENCOUNTER 2020-05-02 15:17 | Inpatient (IN) ==
[2020-05-02] MEDS ORDERED: Dextrose 50% Syringe 50 ml 25 GM/50 ML SYRINGE IV PUSH PRN ×3 (16:29→20:14)
[2020-05-02] MEDS: Insulin GLARGINE 100 un/ml 10 ml VIAL SUBCUT SCH ×2 (16:48→21:06)
[2020-05-02] MEDS: cefTRIAXone 2 GM ADDV.VIAL 2 GM in NS 0.9% 100 ml BAG 100 ML IV SCH (16:56)
[2020-05-02] MEDS ORDERED: Vancomycin per Pharmacy 1 EA NOTE FOLLOW UP SCH (17:00)
[2020-05-02] MEDS: Vancomycin(*) 1,250 MG IV IVPB SCH ×2 (17:53→21:11)
[2020-05-02] MEDS: Buprenorp/Nalox 4-1 MG FILM SL FILM PRN (17:55)
[2020-05-02] MEDS: Buprenorp/Nalox 4-1 MG FILM SL FILM SCH (21:05)
[2020-05-02] MEDS: Heparin 5000 UNITS/ML 1 mL VIAL SUBCUT SCH (21:07)
[2020-05-03] MEDS: Heparin 5000 UNITS/ML 1 mL VIAL SUBCUT SCH ×3 (05:11→21:02)
[2020-05-03] MEDS: Vancomycin(*) 1,250 MG IV IVPB SCH ×3 (05:11→21:01)
[2020-05-03] MEDS: Nicotine PATCH 7 MG/24 HR PATCH TRANSDERM SCH (09:18)
[2020-05-03] MEDS: Buprenorp/Nalox 8-2 MG FILM SL FILM SCH (09:18)
[2020-05-03] MEDS: Insulin GLARGINE 100 un/ml 10 ml VIAL SUBCUT SCH ×2 (09:19→21:00)
[2020-05-03] MEDS ORDERED: Vancomycin Trough Check NOTE FOLLOW UP ONE (13:30)
[2020-05-03] MEDS: cefTRIAXone 2 GM ADDV.VIAL 2 GM in NS 0.9% 100 ml BAG 100 ML IV SCH (16:43)
[2020-05-03] MEDS: Buprenorp/Nalox 4-1 MG FILM SL FILM PRN (17:33)
[2020-05-03] MEDS: Buprenorp/Nalox 4-1 MG FILM SL FILM SCH (21:01)
[2020-05-04] MEDS ORDERED: Vancomycin Trough Check NOTE FOLLOW UP ONE (05:30)
[2020-05-04] MEDS: Heparin 5000 UNITS/ML 1 mL VIAL SUBCUT SCH ×3 (05:36→21:00)
[2020-05-04 06:59] LABS: EGFR African American 235.1 (>60); EGFR Non-African American 194.3 (>60)
[2020-05-04] MEDS: Vancomycin(*) 1,250 MG IV IVPB SCH (07:24)
[2020-05-04] MEDS: Nicotine PATCH 7 MG/24 HR PATCH TRANSDERM SCH (08:37)
[2020-05-04] MEDS: Buprenorp/Nalox 8-2 MG FILM SL FILM SCH (08:38)
[2020-05-04] MEDS: Insulin GLARGINE 100 un/ml 10 ml VIAL SUBCUT SCH ×2 (08:39→20:59)
[2020-05-04] MEDS: Vancomycin 1,000 MG in NS 0.9% 250 ml 250 ML IV SCH ×2 (12:58→19:27)
[2020-05-04] MEDS: Buprenorp/Nalox 4-1 MG FILM SL FILM PRN (17:15)
[2020-05-04] MEDS: cefTRIAXone 2 GM ADDV.VIAL 2 GM in NS 0.9% 100 ml BAG 100 ML IV SCH (17:15)
[2020-05-04 18:19] LABS: ABS Lymphocytes 2.4 10^3/ul (1.0-4.8); ABS Monocytes 0.4 10^3/ul (0-0.8); ABS Neutrophils 2.3 10^3/ul (1.5-7.7); Eosinophil % 0.7 %; Hematocrit 40 % (35-47); Hemoglobin 12.8 g/dL (12.0-16.0); Lymphocyte % 46.1 %; Mean Corpuscular HGB Conc 32 g/dL (31-36); Mean Corpuscular Hemoglobin 29 pg (27-31); Mean Corpuscular Volume 90 fL (80-97); Mean Platelet Volume 7.7 fL (7.4-10.4); Nucleated Red Blood Cells % 0.2; Platelet Count 329 10^3/uL (150-450); Red Blood Count 4.47 10^6 /uL (3.70-4.87); Red Cell Distribution Width 17 % (10-15); White Blood Count 5.2 10^3/uL (3.5-10.8)
[2020-05-04 18:48] LABS: Albumin 3.7 g/dL (3.2-5.2); CO2 Carbon Dioxide 20 mmol/L (22-32); Calcium 8.8 mg/dL (8.6-10.3); Chloride 96 mmol/L (101-111); Sodium 129 mmol/L (135-145)
[2020-05-04 18:54] LABS: ALT 129 U/L (7-52); Albumin/Globulin Ratio 1.1 (1-3); Alkaline Phosphatase 195 U/L (34-104); BUN/Creatinine Ratio 16.7 (8-20); Blood Urea Nitrogen 12 mg/dL (6-24); C Reactive Protein 4.26 mg/L (<8.01); EGFR African American 115.9 (>60); EGFR Non-African American 95.8 (>60); Globulin 3.3 g/dL (2-4); Glucose 439 mg/dL (70-100)
[2020-05-04 18:59] LABS: Anion Gap 13 mmol/L (2-11)
[2020-05-04] MEDS: Buprenorp/Nalox 4-1 MG FILM SL FILM SCH (20:59)
[2020-05-04] MEDS: Nicotine GUM 4MG FRUIT FLAVOR PO PRN (21:55)
[2020-05-05] MEDS: Vancomycin 1,000 MG in NS 0.9% 250 ml 250 ML IV SCH ×4 (00:44→16:34)
[2020-05-05] MEDS: Heparin 5000 UNITS/ML 1 mL VIAL SUBCUT SCH ×3 (05:53→22:34)
[2020-05-05] MEDS: Nicotine PATCH 7 MG/24 HR PATCH TRANSDERM SCH (08:53)
[2020-05-05] MEDS: Insulin GLARGINE 100 un/ml 10 ml VIAL SUBCUT SCH ×2 (08:54→22:34)
[2020-05-05] MEDS: Buprenorp/Nalox 8-2 MG FILM SL FILM SCH (08:55)
[2020-05-05] MEDS ORDERED: Vancomycin Trough Check NOTE FOLLOW UP ONE (12:30)
[2020-05-05 15:36] LABS: ABS Lymphocytes 2.9 10^3/ul (1.0-4.8); ABS Monocytes 0.4 10^3/ul (0-0.8); ABS Neutrophils 2.4 10^3/ul (1.5-7.7); Eosinophil % 0.7 %; Hematocrit 34 % (35-47); Hemoglobin 11.5 g/dL (12.0-16.0); Lymphocyte % 49.9 %; Mean Corpuscular HGB Conc 34 g/dL (31-36); Mean Corpuscular Hemoglobin 30 pg (27-31); Mean Corpuscular Volume 87 fL (80-97); Mean Platelet Volume 7.4 fL (7.4-10.4); Platelet Count 376 10^3/uL (150-450); Red Blood Count 3.87 10^6 /uL (3.70-4.87); Red Cell Distribution Width 16 % (10-15); White Blood Count 5.9 10^3/uL (3.5-10.8)
[2020-05-05 16:17] LABS: Albumin 3.7 g/dL (3.2-5.2); Albumin/Globulin Ratio 1.1 (1-3); BUN/Creatinine Ratio 25.5 (8-20); C Reactive Protein 3.22 mg/L (<8.01); Calcium 9.5 mg/dL (8.6-10.3); EGFR African American 189.6 (>60); EGFR Non-African American 156.7 (>60); Globulin 3.4 g/dL (2-4); Potassium 4.4 mmol/L (3.5-5.0); Total Bilirubin 0.2 mg/dL (0.2-1.0); Total Protein 7.1 g/dL (6.4-8.9)
[2020-05-05] MEDS: Buprenorp/Nalox 4-1 MG FILM SL FILM PRN (16:34)
[2020-05-05] MEDS: Nicotine GUM 4MG FRUIT FLAVOR PO PRN (16:34)
[2020-05-05] MEDS: cefTRIAXone 2 GM ADDV.VIAL 2 GM in NS 0.9% 100 ml BAG 100 ML IV SCH (17:53)
[2020-05-05] MEDS ORDERED: Dextrose 50% Syringe 50 ml 25 GM/50 ML SYRINGE IV PUSH PRN (22:21)
[2020-05-05] MEDS: Al Hydrox/Mg Hydrox/Simet LIQ 30 ML UDC PO PRN (22:33)
[2020-05-05] MEDS: Buprenorp/Nalox 4-1 MG FILM SL FILM SCH (22:33)
[2020-05-06] MEDS: Vancomycin 1,000 MG in NS 0.9% 250 ml 250 ML IV SCH ×4 (00:44→18:14)
[2020-05-06] MEDS: Heparin 5000 UNITS/ML 1 mL VIAL SUBCUT SCH ×3 (05:35→21:35)
[2020-05-06] MEDS: Nicotine PATCH 7 MG/24 HR PATCH TRANSDERM SCH (09:20)
[2020-05-06] MEDS: Buprenorp/Nalox 8-2 MG FILM SL FILM SCH (09:21)
[2020-05-06] MEDS: Insulin GLARGINE 100 un/ml 10 ml VIAL SUBCUT SCH ×2 (09:32→21:34)
[2020-05-06] MEDS: Buprenorp/Nalox 4-1 MG FILM SL FILM PRN (17:22)
[2020-05-06] MEDS: cefTRIAXone 2 GM ADDV.VIAL 2 GM in NS 0.9% 100 ml BAG 100 ML IV SCH (17:23)
[2020-05-06] MEDS ORDERED: Albuterol HFA INHALER 8 gm MDI INH PRN (21:32)
[2020-05-06] MEDS: Buprenorp/Nalox 4-1 MG FILM SL FILM SCH (21:34)
[2020-05-07] MEDS: Vancomycin 1,000 MG in NS 0.9% 250 ml 250 ML IV SCH ×4 (00:57→18:01)
[2020-05-07] MEDS: Heparin 5000 UNITS/ML 1 mL VIAL SUBCUT SCH ×3 (05:52→21:20)
[2020-05-07] MEDS: Nicotine PATCH 7 MG/24 HR PATCH TRANSDERM SCH (09:12)
[2020-05-07] MEDS: Buprenorp/Nalox 8-2 MG FILM SL FILM SCH (09:14)
[2020-05-07] MEDS: Insulin GLARGINE 100 un/ml 10 ml VIAL SUBCUT SCH ×2 (09:17→22:30)
[2020-05-07] MEDS: Buprenorp/Nalox 4-1 MG FILM SL FILM PRN (15:49)
[2020-05-07] MEDS: cefTRIAXone 2 GM ADDV.VIAL 2 GM in NS 0.9% 100 ml BAG 100 ML IV SCH (17:11)
[2020-05-07] MEDS: Al Hydrox/Mg Hydrox/Simet LIQ 30 ML UDC PO PRN (20:06)
[2020-05-07] MEDS: Buprenorp/Nalox 4-1 MG FILM SL FILM SCH (21:20)
[2020-05-08] MEDS: Vancomycin 1,000 MG in NS 0.9% 250 ml 250 ML IV SCH ×4 (00:49→20:44)
[2020-05-08] MEDS ORDERED: Vancomycin Trough Check NOTE FOLLOW UP ONE (05:30)
[2020-05-08] MEDS: Heparin 5000 UNITS/ML 1 mL VIAL SUBCUT SCH ×3 (05:56→21:20)
[2020-05-08 07:47] LABS: Albumin 3.3 g/dL (3.2-5.2); Albumin/Globulin Ratio 1.1 (1-3); BUN/Creatinine Ratio 36.4 (8-20); C Reactive Protein 1.45 mg/L (<8.01); Calcium 9.1 mg/dL (8.6-10.3); EGFR African American 204.6 (>60); EGFR Non-African American 169.1 (>60); Potassium 4.4 mmol/L (3.5-5.0); Total Bilirubin 0.2 mg/dL (0.2-1.0); Total Protein 6.3 g/dL (6.4-8.9)
[2020-05-08 08:20] LABS: Hematocrit 32 % (35-47); Hemoglobin 10.4 g/dL (12.0-16.0); Mean Corpuscular HGB Conc 33 g/dL (31-36); Mean Corpuscular Hemoglobin 29 pg (27-31); Mean Corpuscular Volume 87 fL (80-97); Mean Platelet Volume 8.1 fL (7.4-10.4); Platelet Count 359 10^3/uL (150-450); Red Blood Count 3.64 10^6 /uL (3.70-4.87); Red Cell Distribution Width 16 % (10-15); White Blood Count 4.8 10^3/uL (3.5-10.8)
[2020-05-08] MEDS: Nicotine PATCH 7 MG/24 HR PATCH TRANSDERM SCH (08:51)
[2020-05-08] MEDS: Buprenorp/Nalox 8-2 MG FILM SL FILM SCH (08:51)
[2020-05-08 09:07] LABS: ABS Lymphocytes 2.4 10^3/ul (1.0-4.8); ABS Monocytes 0.4 10^3/ul (0-0.8); Lymphocyte % 49.4 %; Nucleated Red Blood Cells % 0.1
[2020-05-08] MEDS: Insulin GLARGINE 100 un/ml 10 ml VIAL SUBCUT SCH ×2 (09:10→21:15)
[2020-05-08] MEDS: cefTRIAXone 2 GM ADDV.VIAL 2 GM in NS 0.9% 100 ml BAG 100 ML IV SCH (17:24)
[2020-05-08] MEDS: Buprenorp/Nalox 4-1 MG FILM SL FILM PRN (17:57)
[2020-05-08] MEDS: Buprenorp/Nalox 4-1 MG FILM SL FILM SCH (20:45)
[2020-05-09] MEDS: Vancomycin 1,000 MG in NS 0.9% 250 ml 250 ML IV SCH ×4 (02:01→21:47)
[2020-05-09] MEDS: Heparin 5000 UNITS/ML 1 mL VIAL SUBCUT SCH ×3 (06:13→21:42)
[2020-05-09] MEDS ORDERED: Vancomycin Trough Check NOTE FOLLOW UP ONE (07:30)
[2020-05-09] MEDS: Insulin GLARGINE 100 un/ml 10 ml VIAL SUBCUT SCH ×2 (09:09→21:42)
[2020-05-09] MEDS: Nicotine PATCH 7 MG/24 HR PATCH TRANSDERM SCH (09:10)
[2020-05-09] MEDS: Buprenorp/Nalox 8-2 MG FILM SL FILM SCH (09:11)
[2020-05-09] MEDS: cefTRIAXone 2 GM ADDV.VIAL 2 GM in NS 0.9% 100 ml BAG 100 ML IV SCH (16:51)
[2020-05-09] MEDS: Buprenorp/Nalox 4-1 MG FILM SL FILM PRN (17:52)
[2020-05-09] MEDS: Buprenorp/Nalox 4-1 MG FILM SL FILM SCH (21:42)
[2020-05-10] MEDS: Vancomycin 1,000 MG in NS 0.9% 250 ml 250 ML IV SCH ×4 (03:40→22:26)
[2020-05-10] MEDS: Heparin 5000 UNITS/ML 1 mL VIAL SUBCUT SCH ×3 (06:05→22:52)
[2020-05-10] MEDS: Insulin GLARGINE 100 un/ml 10 ml VIAL SUBCUT SCH ×2 (09:06→22:22)
[2020-05-10] MEDS: Buprenorp/Nalox 8-2 MG FILM SL FILM SCH (09:07)
[2020-05-10] MEDS: Nicotine PATCH 7 MG/24 HR PATCH TRANSDERM SCH (09:07)
[2020-05-10] MEDS: cefTRIAXone 2 GM ADDV.VIAL 2 GM in NS 0.9% 100 ml BAG 100 ML IV SCH (16:43)
[2020-05-10] MEDS ORDERED: Dextrose 50% Syringe 50 ml 25 GM/50 ML SYRINGE IV PUSH PRN (22:05)
[2020-05-10] MEDS: Buprenorp/Nalox 4-1 MG FILM SL FILM SCH (22:25)
[2020-05-10] MEDS: Al Hydrox/Mg Hydrox/Simet LIQ 30 ML UDC PO PRN (22:36)
[2020-05-11] MEDS: Vancomycin 1,000 MG in NS 0.9% 250 ml 250 ML IV SCH ×4 (03:25→21:04)
[2020-05-11] MEDS ORDERED: Dextrose 50% Syringe 50 ml 25 GM/50 ML SYRINGE IV PUSH PRN (03:28)
[2020-05-11] MEDS: Heparin 5000 UNITS/ML 1 mL VIAL SUBCUT SCH ×3 (05:34→22:15)
[2020-05-11] MEDS: Nicotine PATCH 7 MG/24 HR PATCH TRANSDERM SCH (09:17)
[2020-05-11] MEDS: Buprenorp/Nalox 8-2 MG FILM SL FILM SCH (09:18)
[2020-05-11] MEDS: Insulin GLARGINE 100 un/ml 10 ml VIAL SUBCUT SCH ×2 (09:22→21:00)
[2020-05-11] MEDS: Buprenorp/Nalox 4-1 MG FILM SL FILM PRN (16:03)
[2020-05-11] MEDS: cefTRIAXone 2 GM ADDV.VIAL 2 GM in NS 0.9% 100 ml BAG 100 ML IV SCH (17:57)
[2020-05-11] MEDS: Buprenorp/Nalox 4-1 MG FILM SL FILM SCH (20:59)
[2020-05-12] MEDS: Vancomycin 1,000 MG in NS 0.9% 250 ml 250 ML IV SCH ×4 (03:27→22:27)
[2020-05-12] MEDS: Heparin 5000 UNITS/ML 1 mL VIAL SUBCUT SCH ×3 (05:30→22:33)
[2020-05-12] MEDS ORDERED: Vancomycin Trough Check NOTE FOLLOW UP ONE (09:00)
[2020-05-12] MEDS ORDERED: Vancomycin Trough Check NOTE FOLLOW UP SCH (09:00)
[2020-05-12] MEDS: Buprenorp/Nalox 8-2 MG FILM SL FILM SCH (10:07)
[2020-05-12] MEDS: Insulin GLARGINE 100 un/ml 10 ml VIAL SUBCUT SCH ×2 (10:07→22:24)
[2020-05-12] MEDS: Nicotine PATCH 7 MG/24 HR PATCH TRANSDERM SCH (10:08)
[2020-05-12] MEDS: Buprenorp/Nalox 4-1 MG FILM SL FILM PRN (14:08)
[2020-05-12] MEDS: cefTRIAXone 2 GM ADDV.VIAL 2 GM in NS 0.9% 100 ml BAG 100 ML IV SCH (17:14)
[2020-05-12] MEDS: Buprenorp/Nalox 4-1 MG FILM SL FILM SCH (22:24)
[2020-05-13] MEDS: Vancomycin 1,000 MG in NS 0.9% 250 ml 250 ML IV SCH ×4 (03:49→22:26)
[2020-05-13] MEDS: Heparin 5000 UNITS/ML 1 mL VIAL SUBCUT SCH ×3 (05:53→22:28)
[2020-05-13] MEDS: Insulin GLARGINE 100 un/ml 10 ml VIAL SUBCUT SCH ×2 (09:42→22:27)
[2020-05-13] MEDS: Nicotine PATCH 7 MG/24 HR PATCH TRANSDERM SCH (09:45)
[2020-05-13] MEDS: Buprenorp/Nalox 8-2 MG FILM SL FILM SCH (09:45)
[2020-05-13] MEDS: Buprenorp/Nalox 4-1 MG FILM SL FILM PRN (16:54)
[2020-05-13] MEDS: cefTRIAXone 2 GM ADDV.VIAL 2 GM in NS 0.9% 100 ml BAG 100 ML IV SCH (16:54)
[2020-05-13] MEDS: Buprenorp/Nalox 4-1 MG FILM SL FILM SCH (22:26)
[2020-05-14] MEDS: Vancomycin 1,000 MG in NS 0.9% 250 ml 250 ML IV SCH ×4 (03:36→21:13)
[2020-05-14] MEDS: Heparin 5000 UNITS/ML 1 mL VIAL SUBCUT SCH ×3 (05:43→21:22)
[2020-05-14] MEDS ORDERED: Insulin GLARGINE 100 un/ml 10 ml VIAL SUBCUT SCH (09:00)
[2020-05-14] MEDS: Buprenorp/Nalox 8-2 MG FILM SL FILM SCH (10:35)
[2020-05-14] MEDS: Nicotine PATCH 7 MG/24 HR PATCH TRANSDERM SCH (10:36)
[2020-05-14] MEDS: Insulin GLARGINE 100 un/ml 10 ml VIAL SUBCUT SCH ×2 (10:36→21:12)
[2020-05-14] MEDS: Buprenorp/Nalox 4-1 MG FILM SL FILM PRN (16:01)
[2020-05-14] MEDS: cefTRIAXone 2 GM ADDV.VIAL 2 GM in NS 0.9% 100 ml BAG 100 ML IV SCH (17:42)
[2020-05-14] MEDS: Buprenorp/Nalox 4-1 MG FILM SL FILM SCH (20:09)
[2020-05-15] MEDS: Vancomycin 1,000 MG in NS 0.9% 250 ml 250 ML IV SCH ×4 (03:27→21:14)
[2020-05-15] MEDS: Heparin 5000 UNITS/ML 1 mL VIAL SUBCUT SCH ×3 (05:43→21:12)
[2020-05-15 06:02] LABS: ABS Eosinophils 0.1 10^3/ul (0-0.6); ABS Lymphocytes 2.4 10^3/ul (1.0-4.8); ABS Monocytes 0.5 10^3/ul (0-0.8); ABS Neutrophils 1.7 10^3/ul (1.5-7.7); Eosinophil % 1.1 %; Hematocrit 31 % (35-47); Hemoglobin 10.7 g/dL (12.0-16.0); Mean Corpuscular HGB Conc 34 g/dL (31-36); Mean Corpuscular Hemoglobin 29 pg (27-31); Mean Corpuscular Volume 86 fL (80-97); Mean Platelet Volume 7.3 fL (7.4-10.4); Nucleated Red Blood Cells % 0.1; Platelet Count 342 10^3/uL (150-450); Red Blood Count 3.62 10^6 /uL (3.70-4.87); Red Cell Distribution Width 16 % (10-15); White Blood Count 4.6 10^3/uL (3.5-10.8)
[2020-05-15 06:34] LABS: Albumin 3.3 g/dL (3.2-5.2); Albumin/Globulin Ratio 1.1 (1-3); BUN/Creatinine Ratio 26.1 (8-20); C Reactive Protein 7.68 mg/L (<8.01); Calcium 8.9 mg/dL (8.6-10.3); EGFR African American 194.3 (>60); EGFR Non-African American 160.6 (>60); Globulin 2.9 g/dL (2-4); Magnesium 1.6 mg/dL (1.9-2.7); Potassium 3.9 mmol/L (3.5-5.0); Total Bilirubin 0.2 mg/dL (0.2-1.0); Total Protein 6.2 g/dL (6.4-8.9)
[2020-05-15] MEDS ORDERED: Magnesium Chloride EC 64 mgTAB PO SCH (09:00)
[2020-05-15] MEDS ORDERED: Vancomycin Trough Check NOTE FOLLOW UP ONE (09:00)
[2020-05-15] MEDS: Buprenorp/Nalox 8-2 MG FILM SL FILM SCH (09:03)
[2020-05-15] MEDS: Insulin GLARGINE 100 un/ml 10 ml VIAL SUBCUT SCH ×2 (09:03→21:12)
[2020-05-15] MEDS: Nicotine PATCH 7 MG/24 HR PATCH TRANSDERM SCH (09:03)
[2020-05-15] MEDS: Magnesium Chloride EC 64 mgTAB PO SCH ×2 (09:04→21:14)
[2020-05-15] MEDS: cefTRIAXone 2 GM ADDV.VIAL 2 GM in NS 0.9% 100 ml BAG 100 ML IV SCH (17:13)
[2020-05-15] MEDS: Buprenorp/Nalox 4-1 MG FILM SL FILM PRN (18:20)
[2020-05-15] MEDS: Buprenorp/Nalox 4-1 MG FILM SL FILM SCH (21:14)
[2020-05-16] MEDS: Vancomycin 1,000 MG in NS 0.9% 250 ml 250 ML IV SCH ×4 (03:10→22:21)
[2020-05-16] MEDS: Heparin 5000 UNITS/ML 1 mL VIAL SUBCUT SCH ×3 (06:00→22:27)
[2020-05-16] MEDS: Magnesium Chloride EC 64 mgTAB PO SCH ×2 (09:00→22:26)
[2020-05-16] MEDS: Nicotine PATCH 7 MG/24 HR PATCH TRANSDERM SCH (09:00)
[2020-05-16] MEDS: Buprenorp/Nalox 8-2 MG FILM SL FILM SCH ×2 (09:00→15:05)
[2020-05-16] MEDS: Insulin GLARGINE 100 un/ml 10 ml VIAL SUBCUT SCH ×2 (09:07→23:00)
[2020-05-16] MEDS: cefTRIAXone 2 GM ADDV.VIAL 2 GM in NS 0.9% 100 ml BAG 100 ML IV SCH (17:14)
[2020-05-16] MEDS: Buprenorp/Nalox 4-1 MG FILM SL FILM PRN (22:21)
[2020-05-17] MEDS: Vancomycin 1,000 MG in NS 0.9% 250 ml 250 ML IV SCH ×4 (05:18→21:24)
[2020-05-17] MEDS: Heparin 5000 UNITS/ML 1 mL VIAL SUBCUT SCH ×3 (05:18→21:24)
[2020-05-17] MEDS: Insulin GLARGINE 100 un/ml 10 ml VIAL SUBCUT SCH ×2 (08:48→21:23)
[2020-05-17] MEDS: Nicotine PATCH 7 MG/24 HR PATCH TRANSDERM SCH (08:49)
[2020-05-17] MEDS: Magnesium Chloride EC 64 mgTAB PO SCH ×2 (08:49→21:22)
[2020-05-17] MEDS: Buprenorp/Nalox 8-2 MG FILM SL FILM SCH ×2 (08:54→13:51)
[2020-05-17] MEDS: cefTRIAXone 2 GM ADDV.VIAL 2 GM in NS 0.9% 100 ml BAG 100 ML IV SCH (16:49)
[2020-05-17] MEDS: Buprenorp/Nalox 4-1 MG FILM SL FILM PRN (21:24)
[2020-05-18] MEDS: Vancomycin 1,000 MG in NS 0.9% 250 ml 250 ML IV SCH ×4 (03:27→22:23)
[2020-05-18] MEDS: Heparin 5000 UNITS/ML 1 mL VIAL SUBCUT SCH ×3 (05:23→22:21)
[2020-05-18] MEDS: Magnesium Chloride EC 64 mgTAB PO SCH ×2 (09:27→22:21)
[2020-05-18] MEDS: Nicotine PATCH 7 MG/24 HR PATCH TRANSDERM SCH (09:28)
[2020-05-18] MEDS: Insulin GLARGINE 100 un/ml 10 ml VIAL SUBCUT SCH ×2 (09:28→22:22)
[2020-05-18] MEDS: Buprenorp/Nalox 8-2 MG FILM SL FILM SCH ×2 (09:37→14:11)
[2020-05-18] MEDS: cefTRIAXone 2 GM ADDV.VIAL 2 GM in NS 0.9% 100 ml BAG 100 ML IV SCH (18:02)
[2020-05-18] MEDS: Buprenorp/Nalox 4-1 MG FILM SL FILM PRN (22:22)
[2020-05-19] MEDS: Vancomycin 1,000 MG in NS 0.9% 250 ml 250 ML IV SCH ×4 (04:18→23:08)
[2020-05-19] MEDS: Heparin 5000 UNITS/ML 1 mL VIAL SUBCUT SCH ×3 (06:03→22:05)
[2020-05-19] MEDS ORDERED: Midazolam 2 mg/2 ml VIAL 1 mg/ml 2 ml VIAL (2 mg) ONE (08:59)
[2020-05-19] MEDS ORDERED: Vancomycin Trough Check NOTE FOLLOW UP ONE (09:00)
[2020-05-19] MEDS ORDERED: Propofol 10 MG/ML 20 ML BTL ONE (09:00)
[2020-05-19] MEDS ORDERED: Lidocaine 2% PF 5 ML VIAL ONE (09:00)
[2020-05-19] MEDS ORDERED: Ondansetron 4 mg VIAL 2 MG/ML 2 ml VIAL IV PRN (10:14)
[2020-05-19] MEDS: Magnesium Chloride EC 64 mgTAB PO SCH ×2 (12:06→22:05)
[2020-05-19] MEDS: Nicotine PATCH 7 MG/24 HR PATCH TRANSDERM SCH (12:06)
[2020-05-19] MEDS: Insulin GLARGINE 100 un/ml 10 ml VIAL SUBCUT SCH ×2 (12:06→22:06)
[2020-05-19] MEDS: Buprenorp/Nalox 8-2 MG FILM SL FILM SCH ×2 (12:11→15:40)
[2020-05-19] MEDS ORDERED: Rocuronium 50 mg VIAL 10 mg/ml 5 ml VIAL (50 mg) ONE (12:23)
[2020-05-19] MEDS ORDERED: Ketamine HCL 50 mg/ml 10 ml VIAL (500 MG) ONE (12:54)
[2020-05-19] MEDS ORDERED: fentaNYL 100 mcg/2 ml 50 MCG/ML VIAL ONE ×2 (12:54→13:58)
[2020-05-19] MEDS ORDERED: Acetaminophen IV 1 GM/100ML 0 ML ONE (12:57)
[2020-05-19] MEDS ORDERED: Dexmedetomidine 200 mcg/2 ml 2 ml VIAL (200 mcg) ONE (13:10)
[2020-05-19] MEDS: cefTRIAXone 2 GM ADDV.VIAL 2 GM in NS 0.9% 100 ml BAG 100 ML IV SCH (17:35)
[2020-05-19] MEDS: Buprenorp/Nalox 4-1 MG FILM SL FILM PRN (22:06)
[2020-05-20] MEDS: Vancomycin 1,000 MG in NS 0.9% 250 ml 250 ML IV SCH ×4 (04:18→21:50)
[2020-05-20] MEDS: Heparin 5000 UNITS/ML 1 mL VIAL SUBCUT SCH ×3 (06:14→21:57)
[2020-05-20] MEDS: Buprenorp/Nalox 8-2 MG FILM SL FILM SCH ×2 (09:13→14:56)
[2020-05-20] MEDS: Insulin GLARGINE 100 un/ml 10 ml VIAL SUBCUT SCH ×2 (09:13→21:57)
[2020-05-20] MEDS: Nicotine PATCH 7 MG/24 HR PATCH TRANSDERM SCH (09:13)
[2020-05-20] MEDS: Magnesium Chloride EC 64 mgTAB PO SCH ×2 (09:13→21:55)
[2020-05-20] MEDS: cefTRIAXone 2 GM ADDV.VIAL 2 GM in NS 0.9% 100 ml BAG 100 ML IV SCH (16:31)
[2020-05-20] MEDS: Buprenorp/Nalox 4-1 MG FILM SL FILM PRN (21:50)
[2020-05-21] MEDS: Vancomycin 1,000 MG in NS 0.9% 250 ml 250 ML IV SCH ×3 (03:23→14:11)
[2020-05-21] MEDS: Heparin 5000 UNITS/ML 1 mL VIAL SUBCUT SCH ×2 (05:45→13:17)
[2020-05-21 07:44] VITALS: BP 104/60
[2020-05-21] MEDS: Insulin GLARGINE 100 un/ml 10 ml VIAL SUBCUT SCH (09:01)
[2020-05-21] MEDS: Magnesium Chloride EC 64 mgTAB PO SCH (09:01)
[2020-05-21] MEDS: Nicotine PATCH 7 MG/24 HR PATCH TRANSDERM SCH (09:01)
[2020-05-21] MEDS: Buprenorp/Nalox 8-2 MG FILM SL FILM SCH ×2 (09:01→14:11)
[2020-05-21] MEDS: cefTRIAXone 2 GM ADDV.VIAL 2 GM in NS 0.9% 100 ml BAG 100 ML IV SCH (15:44)
== END 2020-05-21 16:25 | disposition home or self-care (01) | DRG 720 ==
LOC: MEDTELE 15:17 → MED 05-06 00:27
PROVIDERS: ADMIT Internal Medicine; ATTEND Internal Medicine
PROC: O.CATEE (2020-05-19 09:15)